=== PATIENT | female | born 1960 | race Caucasian/White ===

== ENCOUNTER → 2018-07-13 | Outpatient (CLI) | payer OTHER ==
--- NOTE | 2018-07-13 18:00 | CT ---
EXAMINATION TYPE: CT abdomen pelvis wo con DATE OF EXAM: 07/13/2018 COMPARISON: HISTORY: Right lower quadrant abdominal pain. CT DLP: 549.9 mGycm Automated exposure control for dose reduction was used. TECHNIQUE: Helical acquisition of images was performed from the lung bases through the pelvis. FINDINGS: Within the limits of noncontrast CT the following observations are made: LUNG BASES: Bases are clear. Prominent left and right coronary calcifications noted. LIVER/GB: No significant abnormality is appreciated. PANCREAS: No significant abnormality is seen. SPLEEN: No significant abnormality is seen. ADRENALS: No significant abnormality is seen. KIDNEYS: No significant abnormality is seen. FREE AIR: No free air is visualized RETROPERITONEAL ADENOPATHY: None visualized REPRODUCTIVE ORGANS: No significant abnormality is seen URINARY BLADDER: No significant abnormality is seen. PELVIC ADENOPATHY: None visualized. OSSEOUS STRUCTURES: No significant abnormality is seen. BOWEL: The bowel is well opacified with oral contrast. The appendix emanates caudally from the cecum , which is somewhat elevated cephalad on a congenital basis. The appendix is located immediately deep to the lateral margin of the rectus abdominis; it does not opacify with contrast. However, the cecum and distal ileum do opacify with contrast. There is focal mural thickening of the cecum at the junct ion of the cecum with the appendix. Appendix caliber is 13 mm, with top normal being 6 mm caliber. On ly minimal periappendiceal edematous reticulation noted. There are no focal fluid collections or abno rmal gas collections. No bowel obstruction. IMPRESSION: 1. CT FINDINGS CONSISTENT WITH NONCOMPLICATED ACUTE APPENDICITIS. 2. INCIDENTAL: PROMINENT CORONARY CALCIFICATIONS.
== END ==
LOC: RADCTMAIN 14:43
PROVIDERS: ATTEND Family Medicine
DX: R10.31 Right lower quadrant pain (principal)
CPT/HCPCS: 74176

== ENCOUNTER 2018-07-14 10:04 | Inpatient (IN) | payer OTHER ==
[2018-07-14] MEDS ORDERED: SODIUM CHLORIDE 0.9% 1,000 ML IV STA ×2 (10:24)
[2018-07-14] MEDS ORDERED: metroNIDAZOLE-NS PMX 500 MG in SALINE 1 100ML.BAG IVPB STA (10:26)
[2018-07-14] MEDS ORDERED: MORPHINE SULFATE 4 MG/ML SYRINGE IVP STA (10:45)
[2018-07-14] MEDS ORDERED: PIPERACILLIN-TAZOBACTAM 3.375 GM in DEXTROSE/WATER 1 50ML.BAG IVPB STA (10:54)
[2018-07-14] MEDS ORDERED: diphenhydrAMINE 50 MG/ML 1 ML VIAL IVP STA (10:55)
--- NOTE | 2018-07-14 10:57 | ED ---
Abdominal Pain HPI - General Chief Complaint: Abdominal Pain Stated Complaint: poss appendicitis Time Seen by Provider: 07/14/18 10:14 Source: patient, RN notes reviewed, old records reviewed Mode of arrival: ambulatory Limitations: no limitations - History of Present Illness Initial Comments: Patient is a 58-year-old female presents emergency Department after being sent by her primary care physician. She reports she's R PCP yesterday complaining of some upper and lower right-sided abdominal pain. Patient had an outpatient CAT scan completed yesterday. She was called today when the CAT scan sent to primary care provider. They stated there was evidence of appendicitis. She states she's been having some nausea as well as diarrhea. She reports no bloody stools. She has had a history of cholecystectomy a few years ago had Katerina Bhakta. Patient has had no breakfast this morning. - Related Data Allergies Allergy/AdvReac Type Severity Reaction Status Date / Time acetaminophen [From Percocet] Allergy Rash/Hives Verified 07/14/18 10:47 cephalexin [From Keflex] Allergy Itching Verified 07/14/18 10:47 oxycodone [From Percocet] Allergy Rash/Hives Verified 07/14/18 10:47 Review of Systems ROS Statement: Those systems with pertinent positive or pertinent negative responses have been documented in the HPI. ROS Other: All systems not noted in ROS Statement are negative. Past Medical History Past Medical History: Myocardial Infarction ([place]) History of Any Multi-Drug Resistant Organisms: None Reported Past Surgical History: Cholecystectomy, Heart Catheterization With Stent Past Psychological History: No Psychological Hx Reported Smoking Status: Current every day smoker Past Alcohol Use History: None Reported Past Drug Use History: None Reported General Exam - General Exam Comments Initial Comments: This is a 58-year-old female. Alert and oriented. Appears in no acute distress. Limitations: no limitations General appearance: alert, in no apparent distress Head exam: Present: atraumatic, normocephalic, normal inspection Eye exam: Present: normal appearance, PERRL, EOMI. Absent: scleral icterus, conjunctival injection, periorbital swelling ENT exam: Present: normal exam, mucous membranes moist Neck exam: Present: normal inspection. Absent: tenderness, meningismus, lymphadenopathy Respiratory exam: Present: normal lung sounds bilaterally. Absent: respiratory distress, wheezes, rales, rhonchi, stridor Cardiovascular Exam: Present: regular rate, normal rhythm, normal heart sounds. Absent: systolic murmur, diastolic murmur, rubs, gallop, clicks GI/Abdominal exam: Present: soft, tenderness (And has significant right lower quadrant and is on examination.), normal bowel sounds, other (Positive obterator sign.). Absent: distended, guarding, rebound, rigid Extremities exam: Present: normal inspection, full ROM, normal capillary refill. Absent: tenderness, pedal edema, joint swelling, calf tenderness Back exam: Present: normal inspection Neurological exam: Present: alert, oriented X3, CN II-XII intact Psychiatric exam: Present: normal affect, normal mood Skin exam: Present: warm, dry, intact, normal color. Absent: rash Course Vital Signs 07/14/18 07/14/18 10:07 11:25 Temperature 98.1 F 98.7 F Pulse Rate 64 49 L Respiratory 18 18 Rate Blood Pressure 132/72 133/60 O2 Sat by Pulse 98 100 Oximetry Medical Decision Making - Medical Decision Making 58-year-old female presents emergency department today with chief complaint of right lower quadrant abdominal pain. She had an outpatient CAT scan done by PCP last night. She reports that she was called this morning with findings of acute appendicitis. She states that she's not eat or drink anything today. Patient reports that she has had intermittent fevers and chills. She has significant right lower quadrant tenderness. At this time. Patient was started on IV fluids, Zosyn and Flagyl. She does have an ALLERGY to Keflex. I did review outpatient CT and is positive for appendicitis. Patient will be admitted this time Dr. Landon. Patient will be remaining nothing by mouth. - Lab Data Result diagrams: 07/14/18 10:40 07/14/18 10:40 Lab Results 07/14/18 07/14/18 07/14/18 Range/Units 10:40 10:40 10:40 WBC 8.2 (3.8-10.6) k/uL RBC 4.54 (3.80-5.40) m/uL Hgb 14.9 (11.4-16.0) gm/dL Hct 45.5 (34.0-46.0) % MCV 100.2 H (80.0-100.0) fL MCH 32.8 (25.0-35.0) pg MCHC 32.7 (31.0-37.0) g/dL RDW 12.1 (11.5-15.5) % Plt Count 269 (150-450) k/uL Neutrophils % 62 % Lymphocytes % 28 % Monocytes % 5 % Eosinophils % 3 % Basophils % 1 % Neutrophils # 5.1 (1.3-7.7) k/uL Lymphocytes # 2.3 (1.0-4.8) k/uL Monocytes # 0.4 (0-1.0) k/uL Eosinophils # 0.2 (0-0.7) k/uL Basophils # 0.0 (0-0.2) k/uL PT (9.0-12.0) sec INR (<1.2) APTT (22.0-30.0) sec Sodium 141 (137-145) mmol/L Potassium 4.4 (3.5-5.1) mmol/L Chloride 107 (98-107) mmol/L Carbon Dioxide 24 (22-30) mmol/L Anion Gap 10 mmol/L BUN 12 (7-17) mg/dL Creatinine 0.74 (0.52-1.04) mg/dL Est GFR (CKD-EPI)AfAm >90 (>60 ml/min/1.73 sqM) Est GFR (CKD-EPI)NonAf 90 (>60 ml/min/1.73 sqM) Glucose 98 (74-99) mg/dL Plasma Lactic Acid Peter 1.3 (0.7-2.0) mmol/L Calcium 9.5 (8.4-10.2) mg/dL Total Bilirubin 0.6 (0.2-1.3) mg/dL AST 22 (14-36) U/L ALT 29 (9-52) U/L Alkaline Phosphatase 77 (38-126) U/L Total Protein 7.0 (6.3-8.2) g/dL Albumin 4.0 (3.5-5.0) g/dL Amylase 60 (30-110) U/L Lipase 90 (23-300) U/L Urine Color Urine Appearance (Clear) Urine pH (5.0-8.0) Ur Specific [place] (1.001-1.035) Urine Protein (Negative) Urine Glucose (UA) (Negative) Urine Ketones (Negative) Urine Blood (Negative) Urine Nitrite (Negative) Urine Bilirubin (Negative) Urine Urobilinogen (<2.0) mg/dL Ur Leukocyte Esterase (Negative) Urine RBC (0-5) /hpf Urine WBC (0-5) /hpf Ur Squamous Epith Cells (0-4) /hpf Urine Bacteria (None) /hpf Urine Mucus (None) /hpf 07/14/18 07/14/18 Range/Units 10:40 10:40 WBC (3.8-10.6) k/uL RBC (3.80-5.40) m/uL Hgb (11.4-16.0) gm/dL Hct (34.0-46.0) % MCV (80.0-100.0) fL MCH (25.0-35.0) pg MCHC (31.0-37.0) g/dL RDW (11.5-15.5) % Plt Count (150-450) k/uL Neutrophils % % Lymphocytes % % Monocytes % % Eosinophils % % Basophils % % Neutrophils # (1.3-7.7) k/uL Lymphocytes # (1.0-4.8) k/uL Monocytes # (0-1.0) k/uL Eosinophils # (0-0.7) k/uL Basophils # (0-0.2) k/uL PT 9.9 (9.0-12.0) sec INR 1.0 (<1.2) APTT 23.9 (22.0-30.0) sec Sodium (137-145) mmol/L Potassium (3.5-5.1) mmol/L Chloride (98-107) mmol/L Carbon Dioxide (22-30) mmol/L Anion Gap mmol/L BUN (7-17) mg/dL Creatinine (0.52-1.04) mg/dL Est GFR (CKD-EPI)AfAm (>60 ml/min/1.73 sqM) Est GFR (CKD-EPI)NonAf (>60 ml/min/1.73 sqM) Glucose (74-99) mg/dL Plasma Lactic Acid Peter (0.7-2.0) mmol/L Calcium (8.4-10.2) mg/dL Total Bilirubin (0.2-1.3) mg/dL AST (14-36) U/L ALT (9-52) U/L Alkaline Phosphatase (38-126) U/L Total Protein (6.3-8.2) g/dL Albumin (3.5-5.0) g/dL Amylase (30-110) U/L Lipase (23-300) U/L Urine Color Yellow Urine Appearance Clear (Clear) Urine pH 5.5 (5.0-8.0) Ur Specific [place] 1.021 (1.001-1.035) Urine Protein Negative (Negative) Urine Glucose (UA) Negative (Negative) Urine Ketones 1+ H (Negative) Urine Blood Trace H (Negative) Urine Nitrite Negative (Negative) Urine Bilirubin Negative (Negative) Urine Urobilinogen <2.0 (<2.0) mg/dL Ur Leukocyte Esterase Trace H (Negative) Urine RBC 1 (0-5) /hpf Urine WBC 2 (0-5) /hpf Ur Squamous Epith Cells 3 (0-4) /hpf Urine Bacteria Rare H (None) /hpf Urine Mucus Rare H (None) /hpf 07/14/18 12:16 EKG performed at 1121 shows sinus bradycardia there is no EKG noted. Ventricular rate of 49 bpm.. Intervals 174 ms. QRS ration 82 ms. QT QTc is 470/424 ms. - Radiology Data Radiology results: report reviewed CT findings consistent with uncomplicated acute appendicitis. Also incidental prominent coronary calcifications. Disposition Clinical Impression: Acute appendicitis Disposition: ADMITTED IP TO THIS [facility] Condition: Stable Is patient prescribed a controlled substance at d/c from ED?: No Referrals: Andrei Matthew DO [Primary Care Provider] - 1-2 days Time of Disposition: 12:39
[2018-07-14 11:06] LABS: Basophils % (A) 1 %; Eosinophils # (A) 0.2 k/uL (0-0.7); Eosinophils % (A) 3 %; HCT 45.5 % (34.0-46.0); HGB 14.9 gm/dL (11.4-16.0); Lymphocytes # (A) 2.3 k/uL (1.0-4.8); Lymphocytes % (A) 28 %; MCH 32.8 pg (25.0-35.0); MCHC 32.7 g/dL (31.0-37.0); MCV 100.2 fL (80.0-100.0); Mean Platelet Volume 6.8; Monocytes # (A) 0.4 k/uL (0-1.0); Monocytes % (A) 5 %; Neutrophils # (A) 5.1 k/uL (1.3-7.7); Neutrophils % (A) 62 %; Platelet Count 269 k/uL (150-450); RBC 4.54 m/uL (3.80-5.40); RDW 12.1 % (11.5-15.5); WBC 8.2 k/uL (3.8-10.6)
[2018-07-14 11:14] LABS: Appearance,Urine Clear (Clear); Bacteria,Urine Rare /hpf; Bilirubin,Urine Negative (Negative); Blood,Urine Trace (Negative); Color,Urine Yellow; Glucose,Urine (UA) Negative (Negative); Ketones,Urine 1+ (Negative); Leukocyte Esterase,Urine Trace (Negative); Mucus,Urine Rare /hpf; Nitrite,Urine Negative (Negative); PH, Urine 5.5 (5.0-8.0); Protein,Urine Negative (Negative); RBC,Urine 1 /hpf (0-5); Specific Gravity,Urine 1.021 (1.001-1.035); Squamous Epithelial Cell,Urine 3 /hpf (0-4); Urobilinogen,Urine <2.0 mg/dL (<2.0); WBC,Urine 2 /hpf (0-5)
[2018-07-14 11:17] LABS: ALT 29 U/L (9-52); AST 22 U/L (14-36); Alkaline Phosphatase 77 U/L (38-126); Amylase 60 U/L (30-110); Anion Gap 10 mmol/L; Blood Urea Nitrogen 12 mg/dL (7-17); Calcium 9.5 mg/dL (8.4-10.2); Carbon Dioxide 24 mmol/L (22-30); Chloride 107 mmol/L (98-107); Glucose 98 mg/dL (74-99); Lipase 90 U/L (23-300); Potassium 4.4 mmol/L (3.5-5.1); Sodium 141 mmol/L (137-145); Total Bilirubin 0.6 mg/dL (0.2-1.3)
[2018-07-14 11:18] LABS: Partial Thromboplastin Time 23.9 sec (22.0-30.0); Prothrombin Time 9.9 sec (9.0-12.0)
[2018-07-14] MEDS: ONDANSETRON 4 MG/2 ML VIAL IVP STA (11:26)
--- NOTE | 2018-07-14 11:56 | XR ---
EXAMINATION TYPE: XR chest 2V DATE OF EXAM: 07/14/2018 COMPARISON: NONE TECHNIQUE: PA and lateral views submitted. HISTORY: Pain FINDINGS: The lungs are clear and there is no pneumothorax, pleural effusion, or focal pneumonia. Hypertrophi c and degenerative changes spine. Hyperinflation suggestive of COPD. Arthropathy shoulders. Atheroscl erotic change aorta. IMPRESSION: 1. No acute process.
[2018-07-14] MEDS ORDERED: KETOROLAC 30 MG/ML 1 ML VIAL IVP PRN (12:39)
[2018-07-14] MEDS ORDERED: NALOXONE 0.4 MG/ML 1 ML VIAL IV PRN (12:39)
[2018-07-14] MEDS ORDERED: ROCURONIUM BROMIDE 10 MG/ML 10 ML VIAL IV ONE (13:03)
[2018-07-14] MEDS ORDERED: GLYCOPYRROLATE 0.2 MG/ML 2 ML VIAL ONE (13:03)
[2018-07-14] MEDS ORDERED: LIDOCAINE 1% INJ 10MG/ML (20 ML MDV) ONE (13:03)
[2018-07-14] MEDS ORDERED: PROPOFOL 10 MG/ML 20 ML VIAL IV ONE (13:03)
[2018-07-14] MEDS ORDERED: NEOSTIGMINE 1 MG/ML 10 ML VIAL ONE (13:03)
[2018-07-14] MEDS ORDERED: SUCCINYLCHOLINE CHLORIDE 100 MG/5 ML SYR IV ONE (13:03)
[2018-07-14] MEDS ORDERED: KETOROLAC 30 MG/ML 1 ML VIAL ONE (13:03)
[2018-07-14] MEDS ORDERED: MIDAZOLAM 2 MG/2 ML VIAL ONE (13:03)
[2018-07-14] MEDS ORDERED: fentaNYL (PF) 50 MCG/ML 2 ML AMP ONE (13:03)
[2018-07-14 13:49] VITALS: BMI 31.8
[2018-07-14] MEDS: SODIUM CHLORIDE 0.9% 1,000 ML IV SCH ×2 (14:26→23:21)
--- NOTE | 2018-07-14 16:02 | P.GSHP ---
<Rochelle Tian M - Last Filed: 07/14/18 16:02> History of Present Illness H&P Date: 07/14/18 58-year-old female presented to the emergency room after being evaluated by her primary care provider in the office who indicated that the patient needed to be seen for possible acute appendicitis. Patient stated that she has been having for the last 2 weeks bilateral right lower side abdominal pain radiating to the left Patient stated the last couple days with increased movement caused increased pain to the right upper side of the abdomen. Patient stated over the weekend she felt nauseated poor oral intake and developed diarrhea no blood noted in the stool. Patient reports that her PCP did order an outpatient CAT scan done the day before coming into the emergency room. She was notified that the CAT scan was abnormal and showed evidence of appendicitis. Currently patient states she continues to have right upper quadrant pain radiating to the umbilical area worse with movement. Afebrile white count 8.2 hemoglobin 14.9 electrolytes within normal limits Past surgical history of cholecystectomy 3 years prior coronary stent placed several years ago. Past medical history coronary artery disease prior myocardial infarction - Review of Systems Comment: Essentially unremarkable except as mentioned in the present illness Past Medical History Past Medical History: Myocardial Infarction ([place]) Additional Past Medical History / Comment(s): hernia Last Myocardial Infarction Date:: 2010 History of Any Multi-Drug Resistant Organisms: None Reported Past Surgical History: Cholecystectomy, Heart Catheterization With Stent Past Anesthesia/Blood Transfusion Reactions: No Reported Reaction Date of Last Stent Placement:: September 10, 2011 Past Psychological History: No Psychological Hx Reported Smoking Status: Current every day smoker Past Alcohol Use History: None Reported Past Drug Use History: None Reported - Past Family History Father Additional Family Medical History / Comment(s): lymphoma. brain cancer Mother Additional Family Medical History / Comment(s): lupus Medications and Allergies Home Medications Medication Instructions Recorded Confirmed Type Aspirin EC [Ecotrin] 325 mg PO HS 07/14/18 07/14/18 History Atorvastatin [Lipitor] 40 mg PO HS 07/14/18 07/14/18 History Cholecalciferol (Vitamin D3) 2,000 unit PO HS 07/14/18 07/14/18 History [Vitamin D3] Levothyroxine Sodium [Synthroid] 75 mcg PO Q48H 07/14/18 07/14/18 History Levothyroxine Sodium [Synthroid] 150 mcg PO Q48H 07/14/18 07/14/18 History Lisinopril-Hctz 10-12.5 mg 0.5 tab PO DAILY 07/14/18 07/14/18 History [Zestoretic 10-12.5] Pantoprazole [Protonix] 40 mg PO HS 07/14/18 07/14/18 History Ranitidine HCl [Zantac] 75 mg PO HS 07/14/18 07/14/18 History Allergies Allergy/AdvReac Type Severity Reaction Status Date / Time cephalexin [From Keflex] Allergy Itching Verified 07/14/18 12:49 oxycodone [From Percocet] Allergy Rash/Hives Verified 07/14/18 12:49 adhesive AdvReac Rash/Hives Verified 07/15/18 10:19 Surgical - Exam Vital Signs Temp Pulse Resp BP Pulse Ox 98.1 F 64 18 132/72 98 07/14/18 10:07 07/14/18 10:07 07/14/18 10:07 07/14/18 10:07 07/14/18 10:07 GENERAL APPEARANCE: Pleasant 58-year-old female alert, oriented, in no acute distress. Continues to report having right and left lower quadrant abdominal pain VITAL SIGNS: Reviewed HEENT: Head is normocephalic and atraumatic. Pupils are equal and reactive. The nares are patent. Oropharynx is clear without lesions. NECK: Supple without lymphadenopathy. Traches midline. HEART: S1, S2. Regular rate and rhythm. Denying chest pain no murmur LUNGS: No crackles or wheezes are heard. Adequate air movement ABDOMEN: Soft, mild tenderness to the right lower quadrant worse with movement, nondistended with good bowel sounds. No peritoneal signs. No palpable organomegaly or masses. Reports a nausea sensation no emesis no stooling EXTREMITIES: Normal skin color and turgor. No cyanosis, rash, ulceration, clubbing or edema. Radial pedal pulses are 2/4 bilaterally. NEUROLOGICAL: No focal deficits. Strength and sensation are grossly intact. Results - Labs 07/14/18 10:40 07/14/18 10:40 Abnormal Lab Results - Last 24 Hours (Table) 07/14/18 07/14/18 Range/Units 10:40 10:40 MCV 100.2 H (80.0-100.0) fL Urine Ketones 1+ H (Negative) Urine Blood Trace H (Negative) Ur Leukocyte Esterase Trace H (Negative) Urine Bacteria Rare H (None) /hpf Urine Mucus Rare H (None) /hpf Diabetes panel 07/14/18 Range/Units 10:40 Sodium 141 (137-145) mmol/L Potassium 4.4 (3.5-5.1) mmol/L Chloride 107 (98-107) mmol/L Carbon Dioxide 24 (22-30) mmol/L BUN 12 (7-17) mg/dL Creatinine 0.74 (0.52-1.04) mg/dL Glucose 98 (74-99) mg/dL Calcium 9.5 (8.4-10.2) mg/dL AST 22 (14-36) U/L ALT 29 (9-52) U/L Alkaline Phosphatase 77 (38-126) U/L Total Protein 7.0 (6.3-8.2) g/dL Albumin 4.0 (3.5-5.0) g/dL Calcium panel 07/14/18 Range/Units 10:40 Calcium 9.5 (8.4-10.2) mg/dL Albumin 4.0 (3.5-5.0) g/dL Pituitary panel 07/14/18 Range/Units 10:40 Sodium 141 (137-145) mmol/L Potassium 4.4 (3.5-5.1) mmol/L Chloride 107 (98-107) mmol/L Carbon Dioxide 24 (22-30) mmol/L BUN 12 (7-17) mg/dL Creatinine 0.74 (0.52-1.04) mg/dL Glucose 98 (74-99) mg/dL Calcium 9.5 (8.4-10.2) mg/dL Adrenal panel 07/14/18 Range/Units 10:40 Sodium 141 (137-145) mmol/L Potassium 4.4 (3.5-5.1) mmol/L Chloride 107 (98-107) mmol/L Carbon Dioxide 24 (22-30) mmol/L BUN 12 (7-17) mg/dL Creatinine 0.74 (0.52-1.04) mg/dL Glucose 98 (74-99) mg/dL Calcium 9.5 (8.4-10.2) mg/dL Total Bilirubin 0.6 (0.2-1.3) mg/dL AST 22 (14-36) U/L ALT 29 (9-52) U/L Alkaline Phosphatase 77 (38-126) U/L Total Protein 7.0 (6.3-8.2) g/dL Albumin 4.0 (3.5-5.0) g/dL Assessment and Plan Assessment: Impression History of 2-3 week duration of intermittent right lower quadrant abdominal pain radiating into the umbilical area Outpatient CAT scan done on the positive for possible appendicitis Prior to admission nausea intermittent fever chills with persistent right lower quadrant abdominal pain History of a prior cholecystectomy 3 years ago at [facility] Plan Keep nothing by mouth for now Resume home meds Pain control IV Flagyl and Zosyn as ordered DVT and GI prophylaxis Further surgical recommendations pending IV fluid hydration The above impression and plan of care have been discussed and directed by signing physician. Rochelle Tian nurse practitioner acting as scribe for signing physician. <David Burton - Last Filed: 07/15/18 11:57> Surgical - Exam Vital Signs Temp Pulse Resp BP Pulse Ox 98.1 F 64 18 132/72 98 07/14/18 10:07 07/14/18 10:07 07/14/18 10:07 07/14/18 10:07 07/14/18 10:07 Results - Labs 07/15/18 08:23 07/15/18 08:23 Abnormal Lab Results - Last 24 Hours (Table) 07/15/18 07/15/18 Range/Units 08:23 08:23 RBC 3.70 L (3.80-5.40) m/uL MCV 100.7 H (80.0-100.0) fL Chloride 111 H (98-107) mmol/L Calcium 8.3 L (8.4-10.2) mg/dL Total Protein 5.5 L (6.3-8.2) g/dL Albumin 2.9 L (3.5-5.0) g/dL Diabetes panel 07/15/18 Range/Units 08:23 Sodium 141 (137-145) mmol/L Potassium 4.5 (3.5-5.1) mmol/L Chloride 111 H (98-107) mmol/L Carbon Dioxide 25 (22-30) mmol/L BUN 11 (7-17) mg/dL Creatinine 0.87 (0.52-1.04) mg/dL Glucose 89 (74-99) mg/dL Calcium 8.3 L (8.4-10.2) mg/dL AST 30 (14-36) U/L ALT 33 (9-52) U/L Alkaline Phosphatase 61 (38-126) U/L Total Protein 5.5 L (6.3-8.2) g/dL Albumin 2.9 L (3.5-5.0) g/dL Calcium panel 07/15/18 Range/Units 08:23 Calcium 8.3 L (8.4-10.2) mg/dL Albumin 2.9 L (3.5-5.0) g/dL Pituitary panel 07/15/18 Range/Units 08:23 Sodium 141 (137-145) mmol/L Potassium 4.5 (3.5-5.1) mmol/L Chloride 111 H (98-107) mmol/L Carbon Dioxide 25 (22-30) mmol/L BUN 11 (7-17) mg/dL Creatinine 0.87 (0.52-1.04) mg/dL Glucose 89 (74-99) mg/dL Calcium 8.3 L (8.4-10.2) mg/dL Adrenal panel 07/15/18 Range/Units 08:23 Sodium 141 (137-145) mmol/L Potassium 4.5 (3.5-5.1) mmol/L Chloride 111 H (98-107) mmol/L Carbon Dioxide 25 (22-30) mmol/L BUN 11 (7-17) mg/dL Creatinine 0.87 (0.52-1.04) mg/dL Glucose 89 (74-99) mg/dL Calcium 8.3 L (8.4-10.2) mg/dL Total Bilirubin 0.5 (0.2-1.3) mg/dL AST 30 (14-36) U/L ALT 33 (9-52) U/L Alkaline Phosphatase 61 (38-126) U/L Total Protein 5.5 L (6.3-8.2) g/dL Albumin 2.9 L (3.5-5.0) g/dL Assessment and Plan Plan: Appendicitis. We'll perform laparoscopic appendectomy.
[2018-07-14] MEDS: metroNIDAZOLE-NS PMX 500 MG in SALINE 1 100ML.BAG IVPB SCH ×2 (17:47→23:21)
[2018-07-14] MEDS: ONDANSETRON 4 MG/2 ML VIAL IVP PRN (17:51)
[2018-07-14] MEDS: CHOLECALCIFEROL 1,000 UNIT TAB PO SCH (20:26)
[2018-07-14] MEDS: ATORVASTATIN 40 MG TAB PO SCH (20:26)
[2018-07-14] MEDS ORDERED: PANTOPRAZOLE 40 MG TABLET PO SCH (21:00)
[2018-07-14] MEDS: MORPHINE SULFATE 4 MG/ML SYRINGE IV PRN (23:22)
[2018-07-15] MEDS: metroNIDAZOLE-NS PMX 500 MG in SALINE 1 100ML.BAG IVPB SCH ×3 (06:06→18:14)
[2018-07-15] MEDS ORDERED: LEVOTHYROXINE 75 MCG TAB PO SCH (06:30)
[2018-07-15] MEDS: ONDANSETRON 4 MG/2 ML VIAL IVP PRN ×2 (07:08→17:12)
[2018-07-15] MEDS: PANTOPRAZOLE 40 MG/10 ML VIAL IV SCH (08:18)
[2018-07-15] MEDS: LISINOPRIL-HCTZ 10-12.5 MG 1 EACH TAB PO SCH (08:32)
[2018-07-15 08:43] LABS: Basophils % (A) 0 %; Eosinophils # (A) 0.2 k/uL (0-0.7); Eosinophils % (A) 3 %; HCT 37.3 % (34.0-46.0); HGB 12.1 gm/dL (11.4-16.0); Lymphocytes # (A) 1.1 k/uL (1.0-4.8); Lymphocytes % (A) 18 %; MCH 32.7 pg (25.0-35.0); MCHC 32.5 g/dL (31.0-37.0); MCV 100.7 fL (80.0-100.0); Mean Platelet Volume 6.8; Monocytes # (A) 0.3 k/uL (0-1.0); Monocytes % (A) 5 %; Neutrophils # (A) 4.4 k/uL (1.3-7.7); Neutrophils % (A) 72 %; Platelet Count 223 k/uL (150-450); RDW 12.2 % (11.5-15.5); WBC 6.2 k/uL (3.8-10.6)
[2018-07-15] MEDS ORDERED: LACTATED RINGERS 1,000 ML IV ONE (08:45)
[2018-07-15 09:03] LABS: Albumin 2.9 g/dL (3.5-5.0); Calcium 8.3 mg/dL (8.4-10.2); Potassium 4.5 mmol/L (3.5-5.1); Total Bilirubin 0.5 mg/dL (0.2-1.3); Total Protein 5.5 g/dL (6.3-8.2)
[2018-07-15] MEDS: SODIUM CHLORIDE 0.9% 1,000 ML IV SCH (10:03)
[2018-07-15] MEDS ORDERED: IV FLUID CONTINUATION 1,000 ML IV ONE (11:58)
[2018-07-15] MEDS ORDERED: HEPARIN SODIUM,PORCINE 5,000 UNIT/ML 1 ML VIAL SQ ONE (11:58)
[2018-07-15] MEDS: ONDANSETRON 4 MG/2 ML VIAL IVP STA (11:59)
[2018-07-15] MEDS ORDERED: BUPIVACAIN-EPI 0.25%-1:200,000 30 ML VIAL SQ ONE (13:26)
[2018-07-15] MEDS ORDERED: MORPHINE SULFATE 4MG/4ML SYRG IV ONE (13:51)
[2018-07-15] MEDS ORDERED: ONDANSETRON 4 MG/2 ML VIAL IVP ONE (14:14)
--- NOTE | 2018-07-15 14:27 | P.OP ---
Date of Procedure: 07/15/18 Preoperative Diagnosis: Acute appendicitis Postoperative Diagnosis: Acute appendicitis Procedure(s) Performed: Laparoscopic appendectomy Anesthesia: WILLIE Surgeon: David Burton Estimated Blood Loss (ml): 5 Pathology: other (Appendix) Condition: stable Disposition: PACU Description of Procedure: The patient's placed on the operating table in the supine position. The patient received general anesthesia. The abdomen was prepped and draped in the usual sterile fashion. The skin was anesthetized 1% local Xylocaine at the trocar sites. Using an 11 blade the skin was incised at the umbilicus. The umbilicus was grasped with a [place] clamp and then a Veress needle was placed into the peritoneal cavity. Position of the Veress needle was confirmed with positive drop test. After adequate insufflation a 5 mm trocar was placed into the peritoneal cavity. The abdomen was further insufflated. And then the laparoscope was placed in the peritoneal cavity. Next a 5 mm trocar was placed in the midline suprapubic position. And then a 10 mm trocar was placed in the midline epigastric position. The patient was rotated with the right side up and in Trendelenburg. The appendix was visualized. The appendix appeared to be inflamed. The appendix was grasped and then using the Harmonic scissors the mesoappendix was divided. A PDS Endoloop was then placed around the base of the appendix. And then the appendix was divided using Harmonic scissors. The appendix was placed into an Endo Catch and brought out through the 10 mm trocar site. The abdomen was irrigated. There is no bleeding seen. The trochars withdrawn. The skin was closed interrupted 3-0 Monocryl suture. Dermabond dressing was applied. Patient was sent to recovery room in stable condition.
[2018-07-15] MEDS: MORPHINE SULFATE 4 MG/ML SYRINGE IV PRN (17:13)
[2018-07-15] MEDS: CHOLECALCIFEROL 1,000 UNIT TAB PO SCH (21:51)
[2018-07-15] MEDS: ATORVASTATIN 40 MG TAB PO SCH (21:51)
[2018-07-16] MEDS: metroNIDAZOLE-NS PMX 500 MG in SALINE 1 100ML.BAG IVPB SCH ×2 (00:35→05:52)
[2018-07-16] MEDS: SODIUM CHLORIDE 0.9% 1,000 ML IV SCH (05:54)
[2018-07-16] MEDS: ONDANSETRON 4 MG/2 ML VIAL IVP PRN (06:10)
[2018-07-16] MEDS ORDERED: LEVOTHYROXINE 75 MCG TAB PO SCH (06:30)
[2018-07-16 08:09] VITALS: BP 120/71; PULSE 48; RESP 20; TEMP 98.5
[2018-07-16] MEDS ORDERED: traMADol 50 MG TAB PO PRN (08:28)
[2018-07-16] MEDS: LISINOPRIL-HCTZ 10-12.5 MG 1 EACH TAB PO SCH (10:11)
[2018-07-16] MEDS: PANTOPRAZOLE 40 MG/10 ML VIAL IV SCH (10:19)
--- NOTE | 2018-07-16 10:35 | P.DS ---
Providers Date of admission: 07/14/18 12:40 Expected date of discharge: 07/16/18 Attending physician: David Burton Primary care physician: [facility] Course: 58-year-old female presented to the emergency room after being seen by her primary care provider in the office for persistent right lower abdominal pain radiating to the back. Patient stated initially started 2 weeks prior and continue to persist became more symptomatic. Seen by the PCP who did order an outpatient CAT scan done. Patient was notified that she needed to come to the emergency room the CAT scan was abnormal showing evidence of appendicitis on July 15 patient underwent laparoscopic appendectomy for acute appendicitis postop no events at the time of discharge patient was tolerating a diet surgical incisions dry pain medication plain Tylenol was effective for pain control patient was anxious to be discharged Impression History of 2-3 week duration of intermittent right lower quadrant abdominal pain radiating into the umbilical area Outpatient CAT scan done on the positive for possible appendicitis Prior to admission nausea intermittent fever chills with persistent right lower quadrant abdominal pain suspect due to acute appendicitis History of a prior cholecystectomy 3 years ago at [facility] Postop July 15 laparoscopic appendectomy for acute appendicitis The above impression and plan of care have been discussed and directed by signing physician. Rochelle Tian nurse practitioner acting as scribe for signing physician. Patient Condition at Discharge: Stable Plan - Discharge Summary New Discharge Prescriptions: New Acetaminophen Tab [Tylenol Tab] 650 mg PO Q4H #30 tablet Ibuprofen [Motrin] 200 mg PO Q8HR PRN #30 tab PRN Reason: Mild Pain Continue Pantoprazole [Protonix] 40 mg PO HS Levothyroxine Sodium [Synthroid] 150 mcg PO Q48H Ranitidine HCl [Zantac] 75 mg PO HS Lisinopril-Hctz 10-12.5 mg [Zestoretic 10-12.5] 0.5 tab PO DAILY Atorvastatin [Lipitor] 40 mg PO HS Aspirin EC [Ecotrin] 325 mg PO HS Levothyroxine Sodium [Synthroid] 75 mcg PO Q48H Cholecalciferol (Vitamin D3) [Vitamin D3] 2,000 unit PO HS Discharge Medication List Aspirin EC [Ecotrin] 325 mg PO HS 07/14/18 [History] Atorvastatin [Lipitor] 40 mg PO HS 07/14/18 [History] Cholecalciferol (Vitamin D3) [Vitamin D3] 2,000 unit PO HS 07/14/18 [History] Levothyroxine Sodium [Synthroid] 75 mcg PO Q48H 07/14/18 [History] Levothyroxine Sodium [Synthroid] 150 mcg PO Q48H 07/14/18 [History] Lisinopril-Hctz 10-12.5 mg [Zestoretic 10-12.5] 0.5 tab PO DAILY 07/14/18 [ History] Pantoprazole [Protonix] 40 mg PO HS 07/14/18 [History] Ranitidine HCl [Zantac] 75 mg PO HS 07/14/18 [History] Acetaminophen Tab [Tylenol Tab] 650 mg PO Q4H #30 tablet 07/16/18 [Rx] Ibuprofen [Motrin] 200 mg PO Q8HR PRN #30 tab 07/16/18 [Rx] Follow up Appointment(s)/Referral(s): Andrei Matthew DO [Primary Care Provider] - 1-2 days David Burton MD [STAFF PHYSICIAN] - 1 Week Patient Instructions/Handouts: Piperacillin/Tazobactam (By injection), Appendicitis (GEN), Laparoscopic Appendectomy (IP) Activity/Diet/Wound Care/Special Instructions: No tub bath for six weeks. Shower daily. No lifting over 10 pounds for the next 4 weeks. Low-fat diet and advance as tolerated Use [id number] stool softeners as needed for constipation May use ice packs to surgical site. May return to work on Friday Discharge Disposition: HOME SELF-CARE
== END 2018-07-16 11:20 | disposition home or self-care (01) | DRG 343 ==
LOC: EC 10:04 → 6PED 12:40
PROVIDERS: ADMIT Surgery; ATTEND Surgery
PROC: 0DTJ4ZZ Resection of Appendix, Percutaneous Endoscopic Approach (ICD-10-PCS; principal; 2018-07-14)
DX: K35.80 Unspecified acute appendicitis (principal); F17.200 Nicotine dependence, unspecified, uncomplicated; I25.10 Atherosclerotic heart disease of native coronary artery without angina pectoris; I25.2 Old myocardial infarction; Z80.7 Family history of other malignant neoplasms of lymphoid, hematopoietic and related tissues; Z80.8 Family history of malignant neoplasm of other organs or systems; Z88.1 Allergy status to other antibiotic agents; Z95.5 Presence of coronary angioplasty implant and graft; Z88.5 Allergy status to narcotic agent; Z90.49 Acquired absence of other specified parts of digestive tract
CPT/HCPCS: 36415; 71046; 80053; 81001; 82150; 83605; 83690; 85025; 85610; 85730; 87040; 88304; 93005; 96361; 96365; 96375; 99285

== ENCOUNTER 2018-08-21 10:44 | Day surgery (SDC) | payer OTHER ==
[2018-08-19 11:12] VITALS: BMI 30.1
[~2018-08-21 10:44] MED LIST: LACTATED RINGERS 1,000 ML IV SCH; LIDOCAINE 1% 20 ML VIAL (10MG/ML) FOR IV START INTRADERMA PRN
[2018-08-21 11:32] VITALS: RESP 16; TEMP 98.3
[2018-08-21] MEDS ORDERED: LIDOCAINE 1% 20 ML VIAL (10MG/ML) FOR IV START INTRADERMA ONE (11:33)
[2018-08-21] MEDS ORDERED: PROPOFOL 10 MG/ML 20 ML VIAL IV ONE (11:50)
--- NOTE | 2018-08-21 11:54 | P.GSHP ---
History of Present Illness H&P Date: 08/21/18 Chief Complaint: GERD, constipation This a 58-year-old female presents today for EGD and colonoscopy. She's had issues with GERD and constipation. Past Medical History Past Medical History: GERD/Reflux, Hypertension, Myocardial Infarction ([place]), Thyroid Disorder Additional Past Medical History / Comment(s): hernia Last Myocardial Infarction Date:: 2010 History of Any Multi-Drug Resistant Organisms: None Reported Past Surgical History: Appendectomy, Cholecystectomy, Heart Catheterization With Stent Past Anesthesia/Blood Transfusion Reactions: Postoperative Nausea & Vomiting ( PONV) Date of Last Stent Placement:: September 10, 2011 Smoking Status: Current every day smoker - Past Family History Father Family Medical History: Cancer Additional Family Medical History / Comment(s): lymphoma. brain cancer Mother Additional Family Medical History / Comment(s): lupus Medications and Allergies Home Medications Medication Instructions Recorded Confirmed Type Aspirin EC [Ecotrin] 325 mg PO HS 07/14/18 08/21/18 History Atorvastatin [Lipitor] 40 mg PO HS 07/14/18 08/21/18 History Cholecalciferol (Vitamin D3) 2,000 unit PO HS 07/14/18 08/21/18 History [Vitamin D3] Levothyroxine Sodium [Synthroid] 75 mcg PO Q48H 07/14/18 08/21/18 History Levothyroxine Sodium [Synthroid] 150 mcg PO Q48H 07/14/18 08/21/18 History Lisinopril-Hctz 10-12.5 mg 0.5 tab PO DAILY 07/14/18 08/21/18 History [Zestoretic 10-12.5] Pantoprazole [Protonix] 40 mg PO HS 07/14/18 08/21/18 History Ranitidine HCl [Zantac] 75 mg PO HS 07/14/18 08/21/18 History Acetaminophen Tab [Tylenol Tab] 650 mg PO Q4H #30 tablet 07/16/18 08/21/18 Rx Ibuprofen [Motrin] 200 mg PO Q8HR PRN #30 tab 07/16/18 08/21/18 Rx Allergies Allergy/AdvReac Type Severity Reaction Status Date / Time cephalexin [From Keflex] Allergy Itching Verified 08/21/18 11:30 oxycodone [From Percocet] Allergy Rash/Hives Verified 08/21/18 11:30 adhesive AdvReac Rash/Hives Verified 08/21/18 11:30 Surgical - Exam Vital Signs Temp Pulse Resp BP Pulse Ox 98.3 F 59 L 16 150/70 99 08/21/18 11:31 08/21/18 11:31 08/21/18 11:31 08/21/18 11:31 08/21/18 11:31 - General well developed, no distress - Eyes PERRL - ENT normal pinna - Neck no masses - Respiratory normal expansion - Cardiovascular Rhythm: regular - Abdomen Abdomen: soft, non tender Assessment and Plan Assessment: GERD, constipation. We'll perform EGD and colonoscopy.
--- NOTE | 2018-08-21 12:18 | P.OP ---
Date of Procedure: 08/21/18 Preoperative Diagnosis: GERD Constipation Postoperative Diagnosis: Antral gastritis Small hiatal hernia Mild esophagitis Tortuous colon Procedure(s) Performed: EGD Colonoscopy Anesthesia: MAC Surgeon: David Burton Pathology: other (Antrum, esophagus) Condition: stable Disposition: PACU Description of Procedure: The patient's placed on the endoscopy table in the lateral position. She received IV sedation. The gastroscope placed oropharynx and passed into the esophagus and into the stomach. Scope was then placed through the pylorus. The first and second portion of duodenum appeared normal. Scope was then brought back the antrum and this appeared mildly inflamed. A biopsies performed. The scope was then retroflexed and remainder of the stomach appeared normal. There was a small sliding hiatal hernia. The GE junction was at 38 cm. The distal esophagus appeared mildly inflamed a biopsies performed. The proximal esophagus appeared normal. The scope was withdrawn for patient. Next digital rectal exam was performed which revealed no abnormalities. The flexible colonoscope was then placed patient anus passed rotator colon. The colon was quite tortuous. The ileocecal valve was visualized. The colon was very tortuous. The cecum, ascending and transverse colon appeared normal. The descending and sigmoid was normal as well. Scope was then brought back the rectum this appeared normal. Scope withdrawn for patient.;
[2018-08-21 13:18] VITALS: BP 130/77; PULSE 54
== END 2018-08-21 13:20 | disposition home or self-care (01) ==
LOC: ORWHC2ENDO 10:44
PROVIDERS: ATTEND Surgery
DX: K44.9 Diaphragmatic hernia without obstruction or gangrene (principal); K21.0 Gastro-esophageal reflux disease with esophagitis; K31.9 Disease of stomach and duodenum, unspecified; Q43.8 Other specified congenital malformations of intestine; I25.10 Atherosclerotic heart disease of native coronary artery without angina pectoris; I10 Essential (primary) hypertension; I25.2 Old myocardial infarction; E07.9 Disorder of thyroid, unspecified; Z95.5 Presence of coronary angioplasty implant and graft; F17.200 Nicotine dependence, unspecified, uncomplicated; Z79.82 Long term (current) use of aspirin; Z79.890 Hormone replacement therapy; Z79.899 Other long term (current) drug therapy; Z88.1 Allergy status to other antibiotic agents; Z88.5 Allergy status to narcotic agent; Z91.09 Other allergy status, other than to drugs and biological substances
CPT/HCPCS: 88305; 45378; 43239; J2704

== ENCOUNTER 2018-08-22 15:32 | Emergency (ER) | payer OTHER ==
[2018-08-22] MEDS ORDERED: SODIUM CHLORIDE 0.9% 1,000 ML IV STA (15:57)
--- NOTE | 2018-08-22 16:00 | ED ---
Abdominal Pain HPI - General Chief Complaint: Abdominal Pain Stated Complaint: Abd pain Time Seen by Provider: 08/22/18 15:46 Source: patient Mode of arrival: ambulatory Limitations: no limitations - History of Present Illness Initial Comments: Patient is a 58-year-old female presenting for abdominal discomfort. She states that her general surgeon did a colonoscopy as well as EGD yesterday and told her that she had a "twisted colon". She states that this abdominal discomfort is fairly typical of her chronic abdominal pain which is been present for months but maybe a little bit more intense. It feels a "nervous sensation" without radiation and actually becomes better with movement. She states that she has not had any appetite today and has had nausea but no vomiting or diarrhea, fevers/chills, urinary symptoms. The discomfort is also been fairly constant over the last month. - Related Data Home Medications Medication Instructions Recorded Confirmed Aspirin EC [Ecotrin] 325 mg PO HS 07/14/18 08/22/18 Atorvastatin [Lipitor] 40 mg PO HS 07/14/18 08/22/18 Cholecalciferol (Vitamin D3) 2,000 unit PO HS 07/14/18 08/22/18 [Vitamin D3] Levothyroxine Sodium [Synthroid] 75 mcg PO Q48H 07/14/18 08/22/18 Levothyroxine Sodium [Synthroid] 150 mcg PO Q48H 07/14/18 08/22/18 Lisinopril-Hctz 10-12.5 mg 0.5 tab PO DAILY 07/14/18 08/22/18 [Zestoretic 10-12.5] Ranitidine HCl [Zantac] 75 mg PO HS 07/14/18 08/22/18 Omeprazole 40 mg PO DAILY 08/22/18 08/22/18 Previous Rx's Medication Instructions Recorded Acetaminophen Tab [Tylenol Tab] 650 mg PO Q4H #30 tablet 07/16/18 Allergies Allergy/AdvReac Type Severity Reaction Status Date / Time cephalexin [From Keflex] Allergy Itching Verified 08/22/18 16:51 oxycodone [From Percocet] Allergy Rash/Hives Verified 08/22/18 16:51 adhesive AdvReac Rash/Hives Verified 08/22/18 16:51 Review of Systems ROS Statement: Those systems with pertinent positive or pertinent negative responses have been documented in the HPI. Constitutional: Negative for chills, fatigue and fever. HENT: Negative for congestion. Respiratory: Negative for chest tightness, shortness of breath and wheezing. Negative for cough Cardiovascular: Negative for chest pain and palpitations. Gastrointestinal: Positive for nausea and abdominal pain. Negative for abdominal distention, diarrhea, and vomiting. Genitourinary: Negative for dysuria. Musculoskeletal: Negative for back pain, neck pain and neck stiffness. Skin: Negative for color change. Neurological: Negative for dizziness, speech difficulty, weakness and light- headedness. Psychiatric/Behavioral: Negative for agitation and confusion. Negative for anxiety ROS Other: All systems not noted in ROS Statement are negative. Past Medical History Past Medical History: GERD/Reflux, Hypertension, Myocardial Infarction ([place]), Thyroid Disorder Additional Past Medical History / Comment(s): hernia Last Myocardial Infarction Date:: 2010 History of Any Multi-Drug Resistant Organisms: None Reported Past Surgical History: Appendectomy, Cholecystectomy, Heart Catheterization With Stent Past Anesthesia/Blood Transfusion Reactions: Postoperative Nausea & Vomiting ( PONV) Date of Last Stent Placement:: September 10, 2011 Past Psychological History: No Psychological Hx Reported Smoking Status: Current every day smoker Past Alcohol Use History: None Reported Past Drug Use History: None Reported - Past Family History Father Family Medical History: Cancer Additional Family Medical History / Comment(s): lymphoma. brain cancer Mother Additional Family Medical History / Comment(s): lupus General Exam - General Exam Comments Initial Comments: Constitutional: Pt is oriented to person, place, and time. Pt appears well- developed and well-nourished. No distress. HENT: Head: Normocephalic and atraumatic. Eyes: EOM are normal. Neck: Normal range of motion. Neck supple. Cardiovascular: Normal rate, regular rhythm, S1 normal, S2 normal and normal heart sounds. Exam reveals no gallop and no friction rub. No murmur heard. Pulmonary/Chest: Effort normal and breath sounds normal. No tachypnea and no bradypnea. No respiratory distress. No wheezes or rales noted. Abdominal: Soft. Bowel sounds are normal. Pt exhibits no shifting dullness, no distension, no pulsatile liver, no fluid wave, no abdominal bruit and no ascites. There is no tenderness. There is no rigidity, no rebound, no guarding, no tenderness at McBurney's point and negative Ruiz's sign. Musculoskeletal: Normal range of motion. Neurological: Pt is alert and oriented to person, place, and time. No cranial nerve deficit. Skin: Skin is warm and dry. No rash noted. Pt is not diaphoretic. No erythema. No pallor. Psychiatric: Pt has a normal mood and affect. Pt behavior is normal. Thought content normal. Limitations: no limitations Course Vital Signs 08/22/18 08/22/18 15:52 17:38 Temperature 98.6 F 99.2 F Pulse Rate 58 L 55 L Respiratory 18 16 Rate Blood Pressure 160/72 152/75 O2 Sat by Pulse 97 98 Oximetry Medical Decision Making - Medical Decision Making Laboratory studies showed that there is no significant leukocytosis and electrolytes were relatively within normal limits. There is no evidence of transaminitis, pancreatitis and urinalysis was negative for infection. Because the patient had a recent procedure, CT of the abdomen was performed and showed evidence of diverticulosis but no emergent pathology or findings consistent with acute abdomen. Because of this, it was determined the patient was stable and safe to be discharged and she should follow up with PCP and/or surgery in next 1-2 days. Patient is agreeable to plan and noted to be resting in bed complaining no acute distress. - Lab Data Result diagrams: 08/22/18 16:12 08/22/18 16:12 Lab Results 08/22/18 08/22/18 08/22/18 Range/Units 16:12 16:12 16:12 WBC 8.2 (3.8-10.6) k/uL RBC 4.49 (3.80-5.40) m/uL Hgb 14.4 (11.4-16.0) gm/dL Hct 44.3 (34.0-46.0) % MCV 98.6 (80.0-100.0) fL MCH 32.0 (25.0-35.0) pg MCHC 32.4 (31.0-37.0) g/dL RDW 12.3 (11.5-15.5) % Plt Count 257 (150-450) k/uL Neutrophils % 54 % Lymphocytes % 34 % Monocytes % 5 % Eosinophils % 4 % Basophils % 1 % Neutrophils # 4.5 (1.3-7.7) k/uL Lymphocytes # 2.8 (1.0-4.8) k/uL Monocytes # 0.4 (0-1.0) k/uL Eosinophils # 0.3 (0-0.7) k/uL Basophils # 0.1 (0-0.2) k/uL Sodium 141 (137-145) mmol/L Potassium 4.4 (3.5-5.1) mmol/L Chloride 108 H (98-107) mmol/L Carbon Dioxide 28 (22-30) mmol/L Anion Gap 5 mmol/L BUN 11 (7-17) mg/dL Creatinine 0.80 (0.52-1.04) mg/dL Est GFR (CKD-EPI)AfAm >90 (>60 ml/min/1.73 sqM) Est GFR (CKD-EPI)NonAf 81 (>60 ml/min/1.73 sqM) Glucose 100 H (74-99) mg/dL Calcium 9.3 (8.4-10.2) mg/dL Total Bilirubin 0.3 (0.2-1.3) mg/dL AST 17 (14-36) U/L ALT 28 (9-52) U/L Alkaline Phosphatase 72 (38-126) U/L Total Protein 6.8 (6.3-8.2) g/dL Albumin 3.8 (3.5-5.0) g/dL Lipase 114 (23-300) U/L Urine Color Yellow Urine Appearance Cloudy H (Clear) Urine pH 7.0 (5.0-8.0) Ur Specific [place] 1.011 (1.001-1.035) Urine Protein Negative (Negative) Urine Glucose (UA) Negative (Negative) Urine Ketones Negative (Negative) Urine Blood Negative (Negative) Urine Nitrite Negative (Negative) Urine Bilirubin Negative (Negative) Urine Urobilinogen 2.0 (<2.0) mg/dL Ur Leukocyte Esterase Negative (Negative) Urine WBC 2 (0-5) /hpf Ur Squamous Epith Cells 2 (0-4) /hpf Amorphous Sediment Occasional H (None) /hpf Urine Bacteria Rare H (None) /hpf Urine Mucus Rare H (None) /hpf Disposition Clinical Impression: Abdominal pain Disposition: HOME SELF-CARE Condition: Good Instructions: Abdominal Pain (ED) Is patient prescribed a controlled substance at d/c from ED?: No Referrals: Andrei Matthew DO [Primary Care Provider] - 1-2 days David Burton MD [STAFF PHYSICIAN] - 1-2 days Time of Disposition: 17:40
[2018-08-22 16:27] LABS: Basophils # (A) 0.1 k/uL (0-0.2); Basophils % (A) 1 %; Eosinophils # (A) 0.3 k/uL (0-0.7); Eosinophils % (A) 4 %; HCT 44.3 % (34.0-46.0); HGB 14.4 gm/dL (11.4-16.0); Lymphocytes # (A) 2.8 k/uL (1.0-4.8); Lymphocytes % (A) 34 %; MCHC 32.4 g/dL (31.0-37.0); MCV 98.6 fL (80.0-100.0); Monocytes # (A) 0.4 k/uL (0-1.0); Monocytes % (A) 5 %; Neutrophils # (A) 4.5 k/uL (1.3-7.7); Neutrophils % (A) 54 %; Platelet Count 257 k/uL (150-450); RBC 4.49 m/uL (3.80-5.40); RDW 12.3 % (11.5-15.5); WBC 8.2 k/uL (3.8-10.6)
[2018-08-22 16:37] LABS: ALT 28 U/L (9-52); AST 17 U/L (14-36); Albumin 3.8 g/dL (3.5-5.0); Alkaline Phosphatase 72 U/L (38-126); Anion Gap 5 mmol/L; Blood Urea Nitrogen 11 mg/dL (7-17); Calcium 9.3 mg/dL (8.4-10.2); Carbon Dioxide 28 mmol/L (22-30); Chloride 108 mmol/L (98-107); Glucose 100 mg/dL (74-99); Lipase 114 U/L (23-300); Potassium 4.4 mmol/L (3.5-5.1); Sodium 141 mmol/L (137-145); Total Bilirubin 0.3 mg/dL (0.2-1.3); Total Protein 6.8 g/dL (6.3-8.2)
[2018-08-22 16:38] LABS: Amorphous Sediment,Urine Occasional /hpf; Appearance,Urine Cloudy (Clear); Bacteria,Urine Rare /hpf; Bilirubin,Urine Negative (Negative); Blood,Urine Negative (Negative); Color,Urine Yellow; Glucose,Urine (UA) Negative (Negative); Ketones,Urine Negative (Negative); Leukocyte Esterase,Urine Negative (Negative); Mucus,Urine Rare /hpf; Nitrite,Urine Negative (Negative); Protein,Urine Negative (Negative); Specific Gravity,Urine 1.011 (1.001-1.035); Squamous Epithelial Cell,Urine 2 /hpf (0-4); WBC,Urine 2 /hpf (0-5)
--- NOTE | 2018-08-22 17:24 | CT ---
EXAMINATION TYPE: CT abdomen pelvis w con DATE OF EXAM: 08/22/2018 COMPARISON: 07/13/2018 HISTORY: Mid abdominal pain after colonoscopy yesterday. CT DLP: 808.9 mGycm Automated exposure control for dose reduction was used. TECHNIQUE: Helical acquisition of images was performed from the lung bases through the pelvis. CONTRAST: Performed without Oral Contrast and with IV Contrast, patient injected with 100ml mL of Isovue M300. FINDINGS: Lung bases are clear. There is no pleural effusion. Heart size is normal. Liver and spleen appear normal. Bile ducts are not dilated. There is no pancreatic mass. There are cl ips from cholecystectomy. There is no adrenal mass. Kidneys have normal size and contour. There is no hydronephrosis. There is normal contrast opacification of the kidneys. There is no retroperitoneal a denopathy. Bladder distends smoothly. There is no inguinal hernia. Uterus is anteverted. There is no free fluid in the pelvis. Appendix is not seen. There is no sign of appendicitis. There is no intesti nal wall thickening. There are no dilated loops. There are multiple sigmoid diverticula. There is no evidence of diverticulitis. There is no mesenteric edema. There is no free air. Lumbar spine is intact. Bony pelvis appears intact. There is spurring in the lumbar spine. There is m ild atherosclerotic vascular calcification. IMPRESSION: THERE IS MILD SIGMOID DIVERTICULOSIS WITHOUT DIVERTICULITIS. NO SIGN OF ACUTE ABDOMEN.
[2018-08-22 17:39] VITALS: BP 152/75; PULSE 55; RESP 16; TEMP 99.2
== END 2018-08-22 17:50 | disposition home or self-care (01) ==
LOC: EC 15:32
DX: K57.90 Diverticulosis of intestine, part unspecified, without perforation or abscess without bleeding (principal); K21.9 Gastro-esophageal reflux disease without esophagitis; I10 Essential (primary) hypertension; I25.2 Old myocardial infarction; E07.9 Disorder of thyroid, unspecified; F17.200 Nicotine dependence, unspecified, uncomplicated; Z79.82 Long term (current) use of aspirin; Z79.899 Other long term (current) drug therapy; Z88.1 Allergy status to other antibiotic agents; Z88.8 Allergy status to other drugs, medicaments and biological substances; Z91.048 Other nonmedicinal substance allergy status; Z90.49 Acquired absence of other specified parts of digestive tract; Z95.5 Presence of coronary angioplasty implant and graft
CPT/HCPCS: 36415; 80053; 83690; 85025; 81001; 74177; 99284; 96360; Q9967

== ENCOUNTER 2021-01-08 03:48 | Observation (INO) | payer OTHER ==
[2021-01-08 04:17] LABS: Basophils % (A) 0 %; Eosinophils # (A) 0.4 k/uL (0-0.7); Eosinophils % (A) 4 %; HCT 45.2 % (34.0-46.0); HGB 15.2 gm/dL (11.4-16.0); Lymphocytes # (A) 2.3 k/uL (1.0-4.8); Lymphocytes % (A) 22 %; MCH 33.3 pg (25.0-35.0); MCHC 33.6 g/dL (31.0-37.0); MCV 99.1 fL (80.0-100.0); Mean Platelet Volume 7.6; Monocytes # (A) 0.6 k/uL (0-1.0); Monocytes % (A) 5 %; Neutrophils # (A) 7.1 k/uL (1.3-7.7); Neutrophils % (A) 68 %; Platelet Count 256 k/uL (150-450); RBC 4.56 m/uL (3.80-5.40); RDW 12.2 % (11.5-15.5); WBC 10.5 k/uL (3.8-10.6)
[2021-01-08 04:27] LABS: ALT 18 U/L (4-34); AST 28 U/L (14-36); African American GFR (CKD) >90 (>60 ml/min/1.73 sqM); Albumin 4.2 g/dL (3.5-5.0); Alkaline Phosphatase 80 U/L (38-126); Anion Gap 7 mmol/L; Blood Urea Nitrogen 13 mg/dL (7-17); Calcium 9.4 mg/dL (8.4-10.2); Carbon Dioxide 24 mmol/L (22-30); Chloride 109 mmol/L (98-107); Glucose 122 mg/dL (74-99); INR 0.9 (<1.2); Magnesium 1.9 mg/dL (1.6-2.3); Non-African American GFR(CKD) >90 (>60 ml/min/1.73 sqM); Potassium 4.9 mmol/L (3.5-5.1); Prothrombin Time 9.6 sec (9.0-12.0); Sodium 140 mmol/L (137-145); Total Bilirubin 0.8 mg/dL (0.2-1.3); Total Protein 7.3 g/dL (6.3-8.2)
[2021-01-08] MEDS ORDERED: NITROGLYCERIN SL TABS 0.4 MG TAB SUBLINGUAL STA (04:35)
--- NOTE | 2021-01-08 04:35 | ED ---
Chest Pain HPI - General Chief Complaint: Chest Pain Stated Complaint: Chest Pain Time Seen by Provider: 01/08/21 04:15 Source: patient Mode of arrival: ambulatory Limitations: no limitations - History of Present Illness Initial Comments: 's patient is 60-year-old woman presenting to be evaluated for chest pain that did somewhat remind her of her previous DC at which time she had a stent placed. Complaint: chest pain -: hour(s) Onset: during rest Pain Location: epigastric Pain Radiation: none Severity: moderate Quality: aching, other (Burning) Consistency: constant Improves With: nothing Worsens With: nothing Anginal Symptoms: nausea Treatments Prior to Arrival: none - Related Data On Oral Contraceptives: No Home Medications Medication Instructions Recorded Confirmed Atorvastatin [Lipitor] 40 mg PO HS 07/14/18 01/08/21 Levothyroxine Sodium [Synthroid] 150 mcg PO DAILY 07/14/18 01/08/21 Lisinopril-Hctz 10-12.5 mg 1 tab PO DAILY 07/14/18 01/08/21 [Zestoretic 10-12.5] Pantoprazole Sodium [Protonix] 20 mg PO HS 01/08/21 01/08/21 Previous Rx's Medication Instructions Recorded Aspirin EC [Ecotrin] 81 mg PO HS #0 01/08/21 Cholecalciferol [Vitamin D3 (25 50 mcg PO HS tablet 01/08/21 Mcg = 1000 Iu)] Famotidine [Pepcid] 20 mg PO HS #30 tab 01/08/21 Allergies Allergy/AdvReac Type Severity Reaction Status Date / Time adhesive Allergy Rash/Hives Verified 01/08/21 06:47 cephalexin [From Keflex] Allergy Itching Verified 01/08/21 06:47 oxycodone [From Percocet] Allergy Rash/Hives Verified 01/08/21 06:47 Review of Systems ROS Statement: Those systems with pertinent positive or pertinent negative responses have been documented in the HPI. ROS Other: All systems not noted in ROS Statement are negative. Constitutional: Denies: fever, chills Respiratory: Denies: cough, dyspnea Cardiovascular: Denies: chest pain, palpitations, edema Gastrointestinal: Reports: abdominal pain, nausea. Denies: vomiting, diarrhea, constipation, melena, hematochezia Genitourinary: Denies: dysuria, hematuria Musculoskeletal: Denies: back pain Skin: Denies: rash Neurological: Denies: headache, weakness, numbness EKG Findings - EKG Results: EKG: interpreted by CATALINAD, sinus rhythm (Rate 53 bpm), normal axis, normal QRS, normal ST/T EKG shows: bradycardia - Blocks, Curran, Hypertrophy, ST Abn: Repolarization changes or abnormalities: nonspecific abnormality, ST segment, and/or T wave Past Medical History Past Medical History: GERD/Reflux, Hypertension, Myocardial Infarction ([place]), Thyroid Disorder Additional Past Medical History / Comment(s): hernia Last Myocardial Infarction Date:: 2010 History of Any Multi-Drug Resistant Organisms: None Reported Past Surgical History: Appendectomy, Cholecystectomy, Heart Catheterization With Stent Past Anesthesia/Blood Transfusion Reactions: Postoperative Nausea & Vomiting (PONV) Date of Last Stent Placement:: September 10, 2011 Past Psychological History: No Psychological Hx Reported Smoking Status: Former smoker Past Alcohol Use History: None Reported Past Drug Use History: None Reported - Past Family History Father Family Medical History: Cancer Additional Family Medical History / Comment(s): lymphoma. brain cancer Mother Additional Family Medical History / Comment(s): lupus General Exam Limitations: no limitations General appearance: alert, in no apparent distress Head exam: Present: atraumatic, normocephalic Eye exam: Present: normal appearance. Absent: scleral icterus, conjunctival injection Neck exam: Present: normal inspection Respiratory exam: Present: normal lung sounds bilaterally. Absent: respiratory distress, wheezes, rales, rhonchi, stridor Cardiovascular Exam: Present: regular rate, normal rhythm, normal heart sounds. Absent: systolic murmur, diastolic murmur, rubs, gallop GI/Abdominal exam: Present: soft. Absent: distended, tenderness, guarding, rebound, rigid, mass Extremities exam: Present: normal inspection, normal capillary refill. Absent: pedal edema, calf tenderness Back exam: Present: normal inspection. Absent: CVA tenderness (R), CVA tenderness (L) Neurological exam: Present: alert Skin exam: Present: warm, dry, intact, normal color. Absent: rash Course Vital Signs 01/08/21 01/08/21 01/08/21 03:54 04:50 05:52 Temperature 97.6 F Pulse Rate 54 L 48 L 47 L Respiratory 18 18 18 Rate Blood Pressure 161/75 141/86 119/73 O2 Sat by Pulse 99 96 97 Oximetry 01/08/21 07:14 Temperature 98.0 F Pulse Rate 45 L Respiratory 18 Rate Blood Pressure 116/70 O2 Sat by Pulse 97 Oximetry Chest Pain MDM - MDM This patient is a 60-year-old woman with history of previous coronary artery disease requiring stenting. She presents with chest pain with mixture of typical and atypical features. Patient be admitted for serial cardiac enzymes, telemetry monitoring, cardiology consultation. Symptoms resolved at time of admission. Disposition Clinical Impression: Chest pain Disposition: ADMITTED IP TO THIS HOSP Condition: Good
--- NOTE | 2021-01-08 04:37 | XR ---
EXAM: XR Chest, 2 Views CLINICAL HISTORY: ITS.REASON XR Reason: Chest Pain TECHNIQUE: Frontal and lateral views of the chest. COMPARISON: Chest x-ray dated 07/14/2018 FINDINGS: Lungs: Unremarkable. Pleural space: Unremarkable. Heart: Unremarkable. Mediastinum: Unremarkable. Bones/joints: Unremarkable. IMPRESSION: Normal chest x-rays.
[2021-01-08 04:57] LABS: Amylase 80 U/L (30-110); Lipase 122 U/L (23-300)
[2021-01-08] MEDS ORDERED: NITROGLYCERIN SL TABS 0.4 MG TAB SUBLINGUAL PRN (05:23)
[2021-01-08] MEDS ORDERED: NON FORMULARY DRUG (Levothyroxine Sodium [Synthroid] 150 MCG Tablet) PO SCH (05:30)
[2021-01-08] MEDS: ACETAMINOPHEN TAB 325 MG TAB PO SCH ×2 (05:50→08:31)
[2021-01-08] MEDS ORDERED: PANTOPRAZOLE 40 MG TABLET PO SCH (07:30)
[2021-01-08] MEDS ORDERED: LEVOTHYROXINE 75 MCG TAB PO SCH (08:00)
[2021-01-08] MEDS ORDERED: LISINOPRIL-HCTZ 10-12.5 MG 1 EACH TAB PO SCH (09:00)
[2021-01-08] MEDS ORDERED: ACETAMINOPHEN TAB 325 MG TAB PO PRN (09:07)
[2021-01-08] MEDS ORDERED: DOBUTamine DRIP for NUC MED 500 MG in DEXTROSE/WATER 1 250ML.BAG IV PRN (09:24)
--- NOTE | 2021-01-08 09:53 | P.HPIM ---
History of Present Illness H&P Date: 01/08/21 Chief Complaint: epigastric pain 60 year old woman with a history of early CAD, when she was 50, HTN/HLD, ex- smoker presented with epigastric discomfort. Patient reported burning sensation in her epigastrum on her left side, with no particular exacerbating/alleviating factors. Unrelated to exertion, position, or PO intake. Onset was yesterday night while at rest. ROS is + for nausea; - for sweats, fevers, chills, vomiting, dyspnea, diarrhea, constipation, numbness/weakness, LE edema. In ER, VSS, troponin negative, EKG was sinus bradycardia, normal intervals, and non-ischemic. CXR was normal in appearance. Pt admitted for chest pain rule out; cardiology consulted. Review of Systems All Systems reviewed and pertinent positives and negatives noted in HPI, all other symptoms are negative Past Medical History Past Medical History: GERD/Reflux, Hypertension, Myocardial Infarction ([place]), Thyroid Disorder Additional Past Medical History / Comment(s): hernia Last Myocardial Infarction Date:: 2010 History of Any Multi-Drug Resistant Organisms: None Reported Past Surgical History: Appendectomy, Cholecystectomy, Heart Catheterization With Stent Additional Past Surgical History / Comment(s): PCI with stent 2010, EGD, colonoscopy, umbilical hernia repair Past Anesthesia/Blood Transfusion Reactions: Postoperative Nausea & Vomiting (PONV) Date of Last Stent Placement:: September 10, 2011 Past Psychological History: No Psychological Hx Reported Smoking Status: Former smoker Past Alcohol Use History: None Reported Past Drug Use History: None Reported - Past Family History Father Family Medical History: Cancer Additional Family Medical History / Comment(s): lymphoma. brain cancer Mother Additional Family Medical History / Comment(s): lupus Medications and Allergies Home Medications Medication Instructions Recorded Confirmed Type Aspirin EC [Ecotrin] 325 mg PO HS 07/14/18 01/08/21 History Atorvastatin [Lipitor] 40 mg PO HS 07/14/18 01/08/21 History Levothyroxine Sodium [Synthroid] 150 mcg PO DAILY 07/14/18 01/08/21 History Lisinopril-Hctz 10-12.5 mg 1 tab PO DAILY 07/14/18 01/08/21 History [Zestoretic 10-12.5] Pantoprazole Sodium [Protonix] 20 mg PO HS 01/08/21 01/08/21 History Allergies Allergy/AdvReac Type Severity Reaction Status Date / Time adhesive Allergy Rash/Hives Verified 01/08/21 06:47 cephalexin [From Keflex] Allergy Itching Verified 01/08/21 06:47 oxycodone [From Percocet] Allergy Rash/Hives Verified 01/08/21 06:47 Physical Exam Osteopathic Statement: *. No significant issues noted on an osteopathic structural exam other than those noted in the History and Physical/Consult. Vitals: Vital Signs Temp Pulse Pulse Resp BP BP Pulse Ox 01/08/21 08:03 98.2 F 43 L 15 128/81 97 01/08/21 08:00 48 L 15 01/08/21 07:14 98.0 F 45 L 18 116/70 97 01/08/21 05:52 47 L 18 119/73 97 01/08/21 04:50 48 L 18 141/86 96 01/08/21 03:54 97.6 F 54 L 18 161/75 99 Intake and Output 01/07/21 01/08/21 01/08/21 22:59 06:59 14:59 Other: Voiding Method Toilet # Voids 1 Weight 81.647 kg 81.647 kg Gen: awake, alert HEENT: normocephalic, atraumatic, good hearing acuity, moist mucous membranes Resp: good air exchange, breathing comfortably with no accessory muscle use, clear to auscultation bilaterally, no wheezes CVS: good distal perfusion x 4, regular rate and rhythm without murmurs GI: soft, NTTP, ND, normal breath sounds : no SPT, no CVAT, degroot catheter not present MSK: no pitting edema, no clubbing Neuro: non-focal, moving all extremities Psych: cooperative, euthymic mood Results CBC & Chem 7: 01/08/21 04:07 01/08/21 04:07 Labs: Abnormal Lab Results - Last 24 Hours (Table) 01/08/21 Range/Units 04:07 Chloride 109 H (98-107) mmol/L Glucose 122 H (74-99) mg/dL Thrombosis Risk Factor Assmnt - Choose All That Apply Any of the Below Risk Factors Present?: Yes Other Risk Factors: No Other congenital or acquired thrombophilia - If yes, enter type in comment: No Assessment and Plan Assessment: 1. Epigastric Pain 2. Hypertension 3. Hyperlipidemia 4. Hx CAD s/p 2 x JEWELL to the mid and distal RCA 5. Hypothyroidism 6. GERD 60 year old woman with hx of HTN/HLD/CAD, hypothyroidism, GERD presented with burning epigastric pain, and was admitted for concern for atypical presentation of CAD in a woman with heavy risk factors and prior history of early age ID. Plan: - admit to telemetry - ASA, Statin - trend trops - EKG PRN - will cancel nitro PRN order given her prior history is RCA, and symptoms in epigastric region could be concerning for inferior component if this is ACS - though ACS unlikely in this patient - patient is not on beta-ramona; has borderline low HRs - consider EP consultation outpatient if beta-ramona indicated for CAD, but not tolerated due to RCA disease - cardiology consulted - dobutamine stress test, pending - continue home levothyroxine - PPI daily - continue home Lisinopril, HCTZ - agree with GI cocktail for symptom management Full Code DVT PPx: not indicated at this time
[2021-01-08] MEDS ORDERED: MAG HYDROX/AL HYDROX/SIMETH 30 ML, HYOSCYAMINE ELIXIR 10 ML, LIDOCAINE VISCOUS 2% 10 ML PO ONE ×3 (10:00)
--- NOTE | 2021-01-08 11:56 | P.CRDCN ---
History of Present Illness History of present illness: HISTORY OF PRESENTING ILLNESS This is a pleasant 60-year-old female past medical history significant for hypertension, hyperlipidemia, myocardial infarction in 2010 with PCI and stent placement in the mid distal RCA and proximal RCA, former smoker. She used 2 follow in the office with Dr. 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 We have been asked to see in consultation for chest pain. Patient states that at 6:54 PM last night she started getting dull aching and burning epigastric chest pain. The pain radiated to her right side of her ribs and the right side of her back. Patient states that she took her omeprazole and it did not resolve the pain. Pain is nonexertional. She states that nothing made the pain worse or better. She did have some mild nausea no vomiting. She denies eating any foods out of the ordinary ate shrimp and asparagus last night prior to episode of chest pain. Pain lasted all night. Patient denies palpitations, shortness of breath, lower extremity edema, fatigue, weakness, lightheadedness, syncope. She is able to lie flat in bed with no symptoms of shortness of breath. She states she is compliant with medications. She quit smoking in 2018, smoked for about 25 years. She denies alcohol or illicit drug use. She denies history of diabetes or stroke. Patient seen and examined at bedside, no apparent distress. States chest pain is still constant, dull and burning. Laboratory data reviewed, troponins negative x 3, WBC 10.5, hemoglobin 15.2, sodium 140, potassium 4.9, creatinine 0.68, magnesium 1.9 Vital signs blood pressure 128/81, heart rate 43, 98% on room air, temp 98.2 Current home cardiac medications include lisinoprilhydrochlorothiazide 1 tablet daily, atorvastatin 40 mg daily, aspirin 81 mg daily. DIAGNOSTICS EKG reveals sinus bradycardia. Prior EKG sinus bradycardia Last Cardiac Catheterization and PCI 2010 with stents placed Mid distal RCA and proximal RCA Telemetry tracings indicate sinus bradycardia, with 2 second pause overnight Chest xray no acute cardiopulmonary process REVIEW OF SYSTEMS At the time of my exam: CONSTITUTIONAL: Denies fever or chills. CARDIOVASCULAR: +chest pain, Denies shortness of breath, orthopnea, PND or palpitations. RESPIRATORY: Denies cough. GASTROINTESTINAL: +epigastric pain, + nausea Denies abdominal pain, diarrhea, constipation or vomiting. MUSCULOSKELETAL: +right sided back pain Denies myalgias. NEUROLOGIC: Denies numbness, tingling, headacbe or weakness. ENDOCRINE: Denies fatigue, weight change, polydipsia or polyurina. GENITOURINARY: Denies burning, hematuria or urgency with micturation. HEMATOLOGIC: Denies history of anemia or bleeding. PHYSICAL EXAMINATION CONSTITUTIONAL: No apparent distress. HEENT: Head is normocephalic. Pupils are equal, round. Sclerae anicteric. Mucous membranes of the mouth are moist. No JVD. No carotid bruit. CHEST EXAMINATION: Lungs are clear to auscultation. No chest wall tenderness is noted on palpation or with deep breathing. HEART EXAMINATION: Regular rate and rhythm. S1, S2 heard. No murmurs, gallops or rub. ABDOMEN: Soft, nontender. Positive bowel sounds. EXTREMITIES: 2+ peripheral pulses, no lower extremity edema and no calf tenderness. SKIN: intact NEUROLOGIC EXAMINATION: Patient is awake, alert and oriented x3. ASSESSMENT -Coronary Artery Disease -SD s/p PCI with stents placed Mid distal RCA and proximal RCA -History of Hypertension -Hyperlipidemia PLAN -Will obtain 2D echo and Dobutamine stress test. If no acute changes on Echo and Stress test is negative ok to discharge from cardiac standpoint. -Continue home lisinoprilhydrochlorothiazide 1 tablet daily, atorvastatin 40 mg daily, aspirin 81 mg daily. -Patient will follow up in the office with Dr. Guaman. Nurse Practitioner note has been reviewed, I agree with a documented findings and plan of care. Patient was seen and examined. Past Medical History Past Medical History: GERD/Reflux, Hypertension, Myocardial Infarction (SD), Thyroid Disorder Additional Past Medical History / Comment(s): hernia Last Myocardial Infarction Date:: 2010 History of Any Multi-Drug Resistant Organisms: None Reported Past Surgical History: Appendectomy, Cholecystectomy, Heart Catheterization With Stent Past Anesthesia/Blood Transfusion Reactions: Postoperative Nausea & Vomiting (PONV) Date of Last Stent Placement:: September 10, 2011 Past Psychological History: No Psychological Hx Reported Smoking Status: Former smoker Past Alcohol Use History: None Reported Past Drug Use History: None Reported - Past Family History Father Family Medical History: Cancer Additional Family Medical History / Comment(s): lymphoma. brain cancer Mother Additional Family Medical History / Comment(s): lupus Medications and Allergies Home Medications Medication Instructions Recorded Confirmed Type Aspirin EC [Ecotrin] 325 mg PO HS 07/14/18 01/08/21 History Atorvastatin [Lipitor] 40 mg PO HS 07/14/18 01/08/21 History Levothyroxine Sodium [Synthroid] 150 mcg PO DAILY 07/14/18 01/08/21 History Lisinopril-Hctz 10-12.5 mg 1 tab PO DAILY 07/14/18 01/08/21 History [Zestoretic 10-12.5] Pantoprazole Sodium [Protonix] 20 mg PO HS 01/08/21 01/08/21 History Allergies Allergy/AdvReac Type Severity Reaction Status Date / Time adhesive Allergy Rash/Hives Verified 01/08/21 06:47 cephalexin [From Keflex] Allergy Itching Verified 01/08/21 06:47 oxycodone [From Percocet] Allergy Rash/Hives Verified 01/08/21 06:47 Physical Exam Vitals: Vital Signs Temp Pulse Pulse Resp BP BP Pulse Ox 01/08/21 08:03 98.2 F 43 L 15 128/81 97 01/08/21 08:00 48 L 15 01/08/21 07:14 98.0 F 45 L 18 116/70 97 01/08/21 05:52 47 L 18 119/73 97 01/08/21 04:50 48 L 18 141/86 96 01/08/21 03:54 97.6 F 54 L 18 161/75 99 Intake and Output 01/07/21 01/08/21 01/08/21 22:59 06:59 14:59 Other: Voiding Method Toilet # Voids 1 Weight 81.647 kg Results 01/08/21 04:07 01/08/21 04:07 Cardiac Enzymes 01/08/21 01/08/21 01/08/21 Range/Units 04:07 04:07 07:01 AST 28 (14-36) U/L Troponin I <0.012 <0.012 (0.000-0.034) ng/mL Coagulation 01/08/21 Range/Units 04:07 PT 9.6 (9.0-12.0) sec APTT 23.0 (22.0-30.0) sec CBC 01/08/21 Range/Units 04:07 WBC 10.5 (3.8-10.6) k/uL RBC 4.56 (3.80-5.40) m/uL Hgb 15.2 (11.4-16.0) gm/dL Hct 45.2 (34.0-46.0) % Plt Count 256 (150-450) k/uL Comprehensive Metabolic Panel 01/08/21 Range/Units 04:07 Sodium 140 (137-145) mmol/L Potassium 4.9 (3.5-5.1) mmol/L Chloride 109 H (98-107) mmol/L Carbon Dioxide 24 (22-30) mmol/L BUN 13 (7-17) mg/dL Creatinine 0.68 (0.52-1.04) mg/dL Glucose 122 H (74-99) mg/dL Calcium 9.4 (8.4-10.2) mg/dL AST 28 (14-36) U/L ALT 18 (4-34) U/L Alkaline Phosphatase 80 (38-126) U/L Total Protein 7.3 (6.3-8.2) g/dL Albumin 4.2 (3.5-5.0) g/dL Current Medications Generic Name Dose Route Start Last Admin Trade Name Freq PRN Reason Stop Dose Admin Acetaminophen 650 mg 01/08/21 05:30 01/08/21 08:31 Acetaminophen Tab 325 Mg Tab PO Not Given Q4H GRANT Aspirin 325 mg 01/09/21 09:00 Aspirin 325 Mg Tab PO DAILY GRANT Atorvastatin Calcium 40 mg 01/08/21 21:00 Atorvastatin 40 Mg Tab PO HS GRANT Cholecalciferol 50 mcg 01/08/21 21:00 Cholecalciferol 25 Mcg (1000 Iu) Tablet PO HS GRANT Famotidine 20 mg 01/08/21 21:00 Famotidine 20 Mg Tab PO HS GRANT Lisinopril/HCTZ 0.5 each 01/08/21 09:00 Lisinopril-Hctz 10-12.5 Mg 1 Each Tab PO DAILY GRANT Levothyroxine Sodium 150 mcg 01/08/21 08:00 Levothyroxine 75 Mcg Tab PO DAILY@0630 GRANT Nitroglycerin 0.4 mg 01/08/21 05:23 Nitroglycerin Sl Tabs 0.4 Mg Tab SUBLINGUAL Q5M PRN Chest Pain Pantoprazole Sodium 40 mg 01/08/21 07:30 Pantoprazole 40 Mg Tablet PO DAILY@0730 [facility] Intake and Output 01/07/21 01/08/21 01/08/21 22:59 06:59 14:59 Other: Voiding Method Toilet # Voids 1 Weight 81.647 kg 01/08/21 04:07 01/08/21 04:07
--- NOTE | 2021-01-08 12:15 | ECHOF ---
Referral Reason:new chest pain MEASUREMENTS -------- HEIGHT: 157.5 cm WEIGHT: 81.7 kg BP: IVSd: 1.0 cm (0.6 - 1.1) LVIDd: 4.2 cm (3.9 - 5.3) LVPWd: 1.2 cm (0.6 - 1.1) IVSs: 1.3 cm LVIDs: 2.6 cm LVPWs: 1.7 cm LAESV Index (A-L): 33.85 ml/m Ao Diam: 3.1 cm (2.0 - 3.7) AV Cusp: 1.8 cm (1.5 - 2.6) LA Diam: 3.7 cm (2.7 - 3.8) MV E Soy: 0.82 m/s MV DecT: 179 ms MV A Soy: 0.90 m/s MV E/A Ratio: 0.91 RAP: 5.00 mmHg RVSP: 50.66 mmHg FINDINGS -------- Sinus rhythm. This was a technically good study. LV size, wall thickness and systolic function are normal, with an EF greater than 55%. The left khadra tricular size is normal. The right ventricle is normal in size. LA is moderately dilated 34-39 ml/m2 The right atrial size is normal. The aortic valve is trileaflet, and appears structurally normal. No aortic stenosis or regurgitation. Mild mitral annular calcification present. Mild mitral regurgitation is present. Mild tricuspid regurgitation present. There is moderate pulmonary hypertension. The right ventric ular systolic pressure, as measured by Doppler, is 50.66mmHg. There is no pulmonic regurgitation present. The aortic root size is normal. There is no pericardial effusion. CONCLUSIONS -------- 1. LV size, wall thickness and systolic function are normal, with an EF greater than 55%. 2. The left ventricular size is normal. 3. The right ventricle is normal in size. 4. LA is moderately dilated 34-39 ml/m2 5. The right atrial size is normal. 6. The aortic valve is trileaflet, and appears structurally normal. No aortic stenosis or regurgitati on. 7. Mild mitral annular calcification present. 8. Mild mitral regurgitation is present. 9. Mild tricuspid regurgitation present. 10. There is moderate pulmonary hypertension. 11. The right ventricular systolic pressure, as measured by Doppler, is 50.66mmHg. 12. The aortic root size is normal. 13. There is no pericardial effusion. FACE AND FILL PACKER: Terri Boland RDCS
--- NOTE | 2021-01-08 12:25 | P.STRESS ---
- Stress Test Note Stress Test Results/Findings: Exam Performed: dobutamine stress echo Exam Date: 01/08/21 Reason for Exam: CP Height: 5 ft 2 in Weight: 81.65 kg Protocol: DOBUTAMINE STRESS ECHO Stage: IV Duration of Exercise: 11.44 Resting Heart Rate: 45 Resting Blood Pressure: 162/54 Maximum Achieved Heart Rate: 139 Maximum Achieved Blood Pressure: 134/48 85% PMHR: 87 100% PMHR: 159 METS: Technologist Comment: Stress Test Results/Findings: Patient underwent dobutamine stress echo with infusion of dobutamine into Stage 4 for a total of 11 minutes 44 seconds. Patient's maximum heart rate was 139 which represented 87 % age-predicted maximum heart rate. Stress EKG portion: At baseline patient's EKG showed sinus bradycardia with PACs, normal axis, no significant ST or T-wave abnormalities. At peak dobutamine infusion, EKG showed rare PVCs, nondiagnostic 0.[address] depressions in the inferior and lateral leads. Stress echo portion: 2-D echocardiogram was performed in the parasternal long, personal short, apical 2 and apical four-chamber views at rest, low-dose, peak infusion and in recovery. At baseline, echocardiogram showed left ventricular ejection fraction 55% without wall motion abnormalities. With peak infusion, echocardiogram shows improvement in left ventricular ejection fraction, increase contractility, decrease in left ventricular dimension without wall motion abnormalities consistent with a normal response to dobutamine. Conclusions: 1. Normal stress EKG and echo response to dobutamine infusion without any evidence of inducible ischemia.
[2021-01-08 13:49] VITALS: BP 138/79; PULSE 46; RESP 16; TEMP 98
--- NOTE | 2021-01-08 14:31 | P.DS ---
Providers Date of admission: 01/08/21 05:24 Expected date of discharge: 01/08/21 Attending physician: Abdoulaye Keller MD Consults: 01/08/21 05:24 Consult Physician Urgent Consulting Provider: Terrie Eaton Consult Reason/Comments: chest pain Do you want consulting provider notified?: Yes Primary care physician: [facility] Course: 1. Epigastric Pain 2. Hypertension 3. Hyperlipidemia 4. Hx CAD s/p 2 x JEWELL to the mid and distal RCA 5. Hypothyroidism 6. GERD 60 year old woman with hx of HTN/HLD/CAD, hypothyroidism, GERD presented with burning epigastric pain, and was admitted for concern for atypical presentation of CAD in a woman with heavy risk factors and prior history of early age [place]. She had negative troponins, non-ischemic EKG, normal CXR. Seen in consultation by cardiology, who recommended dobutamine stress test, this was negative. Patient was cleared for discharge by their team. In follow up, cardiology to consider EP consultation if beta-ramona is indicated for CAD, but she cannot tolerate it due to sinus bradycardia from RCA disease. Patient started on famotidine and continued on home PPI. Pt to f/u with PCP and cardiology team. Patient Condition at Discharge: Good Plan - Discharge Summary Discharge Rx Participant: No New Discharge Prescriptions: New Famotidine [Pepcid] 20 mg PO HS #30 tab Cholecalciferol [Vitamin D3 (25 Mcg = 1000 Iu)] 50 mcg PO HS tablet Continue Levothyroxine Sodium [Synthroid] 150 mcg PO DAILY Lisinopril-Hctz 10-12.5 mg [Zestoretic 10-12.5] 1 tab PO DAILY Atorvastatin [Lipitor] 40 mg PO HS Pantoprazole Sodium [Protonix] 20 mg PO HS Changed Aspirin EC [Ecotrin] 81 mg PO HS #0 Discharge Medication List Atorvastatin [Lipitor] 40 mg PO HS 07/14/18 [History] Levothyroxine Sodium [Synthroid] 150 mcg PO DAILY 07/14/18 [History] Lisinopril-Hctz 10-12.5 mg [Zestoretic 10-12.5] 1 tab PO DAILY 07/14/18 [History] Aspirin EC [Ecotrin] 81 mg PO HS #0 01/08/21 [Rx] Cholecalciferol [Vitamin D3 (25 Mcg = 1000 Iu)] 50 mcg PO HS tablet 01/08/21 [Rx] Famotidine [Pepcid] 20 mg PO HS #30 tab 01/08/21 [Rx] Pantoprazole Sodium [Protonix] 20 mg PO HS 01/08/21 [History] Follow up Appointment(s)/Referral(s): Ramon Guaman DO [STAFF PHYSICIAN] - 2 Weeks Zach Cordero DO [Primary Care Provider] - 1-2 days Discharge Disposition: HOME SELF-CARE
[2021-01-08] MEDS ORDERED: ATORVASTATIN 40 MG TAB PO SCH (21:00)
[2021-01-08] MEDS ORDERED: CHOLECALCIFEROL 25 MCG (1000 IU) TABLET PO SCH (21:00)
[2021-01-08] MEDS ORDERED: FAMOTIDINE 20 MG TAB PO SCH (21:00)
[2021-01-09] MEDS ORDERED: ASPIRIN 81 MG PO SCH (09:00)
[2021-01-09] MEDS ORDERED: ASPIRIN 325 MG TAB PO SCH (09:00)
== END 2021-01-08 15:00 | disposition home or self-care (01) ==
LOC: EC 03:48 → 6NMEDSUR 05:24
PROVIDERS: ADMIT Internal Medicine; ATTEND Internal Medicine
DX: R10.13 Epigastric pain (principal); R00.1 Bradycardia, unspecified; R07.89 Other chest pain; M54.9 Dorsalgia, unspecified; R61 Generalized hyperhidrosis; R50.9 Fever, unspecified; R11.2 Nausea with vomiting, unspecified; R06.00 Dyspnea, unspecified; R19.7 Diarrhea, unspecified; K59.00 Constipation, unspecified; R20.0 Anesthesia of skin; R53.1 Weakness; R60.0 Localized edema; I25.2 Old myocardial infarction; Z91.048 Other nonmedicinal substance allergy status; K21.9 Gastro-esophageal reflux disease without esophagitis; I10 Essential (primary) hypertension; E78.5 Hyperlipidemia, unspecified; E03.9 Hypothyroidism, unspecified; I25.10 Atherosclerotic heart disease of native coronary artery without angina pectoris; Z90.49 Acquired absence of other specified parts of digestive tract; Z87.891 Personal history of nicotine dependence; Z79.82 Long term (current) use of aspirin; Z95.5 Presence of coronary angioplasty implant and graft; Z79.899 Other long term (current) drug therapy; Z79.890 Hormone replacement therapy; Z88.1 Allergy status to other antibiotic agents; Z88.5 Allergy status to narcotic agent; Z80.7 Family history of other malignant neoplasms of lymphoid, hematopoietic and related tissues; Z80.8 Family history of malignant neoplasm of other organs or systems; Z82.69 Family history of other diseases of the musculoskeletal system and connective tissue; Z20.822 Contact with and (suspected) exposure to COVID-19
CPT/HCPCS: 99285; 36415; 93005; 93306; 93351; 80053; 82150; 83690; 83735; 84484; 85025; 85610; 85730; 87635; 71046; G0378